=== PATIENT | male | born 1960 | race Caucasian/White ===

== ENCOUNTER 2021-01-10 11:48 | Inpatient (IN) | payer OTHER ==
[~2021-01-10] VITALS: Ht 180.3 cm; Wt 102.5 kg
[2021-01-10] MEDS ORDERED: NIFEDIPINE ER90 M1 PO (12:17)
[2021-01-10] MEDS ORDERED: TRANDATE300 MG PO (12:17)
[2021-01-10] MEDS ORDERED: ABATRON LIQUID474 ML (12:18)
[2021-01-10] MEDS ORDERED: LASIX20 MG PO (12:18)
[2021-01-10] MEDS ORDERED: FUROSEMIDE5 GM MC (12:19)
[2021-01-10] MEDS ORDERED: GLIMEPIRIDE4 MG (12:20)
== END 2021-01-14 17:52 | disposition home or self-care (01) | DRG 683 ==
LOC: ER 11:48 → MEDI 21:01
PROVIDERS: ADMIT Internal Medicine; ATTEND Internal Medicine
DX: I12.9 Hypertensive chronic kidney disease with stage 1 through stage 4 chronic kidney disease, or unspecified chronic kidney disease (principal); N17.8 Other acute kidney failure; N18.30 Chronic kidney disease, stage 3 unspecified; E11.22 Type 2 diabetes mellitus with diabetic chronic kidney disease; Z79.4 Long term (current) use of insulin; Z20.822 Contact with and (suspected) exposure to COVID-19; E66.8 Other obesity; I95.89 Other hypotension

== ENCOUNTER 2022-09-08 07:19 | Outpatient (CLI) | payer OTHER ==
[~2022-09-08 07:19] MED LIST: ABATRON LIQUID474 ML; FUROSEMIDE5 GM MC; GLIMEPIRIDE4 MG; LASIX20 MG PO; NIFEDIPINE ER90 M1 PO; TRANDATE300 MG PO
== END 2022-09-08 07:24 | disposition home or self-care (01) ==
LOC: NUCLEAR 07:19
PROVIDERS: ATTEND Internal Medicine
DX: I25.9 Chronic ischemic heart disease, unspecified (principal)